=== PATIENT | female | born 1960 | race Caucasian/White ===

== ENCOUNTER 2018-01-21 06:40 | Day surgery (SDC) | payer BC ==
[~2018-01-21 06:40] MED LIST: Acetaminophen TAB* 325 MG PO PRN; Buffered Lidocaine 0.9% SYRIN* 5 ML/SYR SYRINGE INTRADERM ONE
[2018-01-21] MEDS ORDERED: Midazolam* 1 MG/ML 5 ML VIAL (5 MG) ONE (07:50)
[2018-01-21] MEDS ORDERED: Neomycin/Polymy/Dex OPTH.SUSP* MAXITROL 0.1% 5 ML ONE (08:06)
[2018-01-21] MEDS ORDERED: acetaZOLAMIDE TAB* 250 MG ONE (08:06)
[2018-01-21] MEDS ORDERED: Lidocaine 2% EPI 1:200000 MPF*10-20 ML VIAL ONE (08:06)
[2018-01-21] MEDS ORDERED: Cyclopentolate 1% OPTH.SOL* 2 ML BTL ONE (08:06)
[2018-01-21] MEDS ORDERED: Povidone Iodine 5% OPTH* 30 ML BTL ONE (08:06)
[2018-01-21] MEDS ORDERED: Ketorolac 0.5% OPHTH (NF) 0.5 % 5 ML BTL ONE (08:06)
[2018-01-21] MEDS ORDERED: Phenylephrine 2.5% OPTH.SOL* 2 ML BTL ONE (08:06)
[2018-01-21] MEDS ORDERED: Lidocaine 1%* 5 ML VIAL ONE (08:06)
[2018-01-21] MEDS ORDERED: Proparacaine 0.5% OPHTH.SOL* 15 ML BTL ONE (08:07)
[2018-01-21] MEDS ORDERED: fentaNYL* 50 MCG/ML 2 ML VIAL (100 MCG VIAL) ONE (08:50)
[2018-01-21 09:42] VITALS: BP 98/47
--- NOTE | 2018-01-22 06:29 | OP ---
DATE OF OPERATION: 01/21/18 - [facility] DATE OF : 56 SURGEON: Cirilo Carey M.D. PREOPERATIVE DIAGNOSIS: Cataract, left eye; primary open angle glaucoma, left. POSTOPERATIVE DIAGNOSIS: Cataract, left eye; primary open angle glaucoma, left. OPERATIVE PROCEDURE: Extracapsular cataract extraction with intraocular lens implant left eye and iStent. DESCRIPTION OF PROCEDURE: The patient was brought to the operating room after being given 1/2% Alcaine with epinephrine drops in the preoperative area. The eye was prepped and draped in the usual sterile fashion. Sterile drape and eyelid speculum were placed. Again, topical 1/2% Alcaine with epinephrine was given. A paracentesis incision was made at the 3 o'clock position with the No.75 blade. Clear cornea incision 2.2 x 2.2-mm was created at the 6 o'clock position starting at the anterior limbus using the 2.2-mm keratome. The anterior chamber was irrigated with 0.4 mL of 1% non-preservative intracameral lidocaine and filled with DisCoVisc. A capsulorrhexis was completed using the cystotome and the Utrata forceps. Hydrodissection was performed with balanced salt solution. The lens nucleus was removed with the Phacoemulsification handpiece without incident. Cortex was removed with the irrigation-aspiration handpiece. The capsular bag was re-inflated using DisCoVisc and an [id number] implant was inserted with the shooter followed by an iStent [id number] inserted with its shooter into the trabecular mesh work at 9 o'clock. The lens was then rotated to the 178 degree meridian. Horizontal reference green were made in the preoperative area with the patient in a seated position. The irrigation- aspiration handpiece was used to remove all residual DisCoVisc. The eye was refilled with balanced salt solution and the wound checked and found to be watertight. Topical Maxitrol drops were given. [id number]/[facility] #: [id number] MTDD
== END 2018-01-21 09:38 | disposition home or self-care (01) ==
LOC: OREAST 06:40
PROVIDERS: ATTEND Specialist
DX: H25.812 Combined forms of age-related cataract, left eye (principal); H40.1131 Primary open-angle glaucoma, bilateral, mild stage; E03.9 Hypothyroidism, unspecified; J45.909 Unspecified asthma, uncomplicated; Z85.820 Personal history of malignant melanoma of skin; E78.5 Hyperlipidemia, unspecified
CPT/HCPCS: A9270-GY; C1783; J2250; J3010; V2787

== ENCOUNTER 2018-01-28 10:46 | Day surgery (SDC) | payer BC ==
[~2018-01-28 10:46] MED LIST changes: +Midazolam* 1 MG/ML 2 ML VIAL (2 MG) ONE
[2018-01-28] MEDS ORDERED: Proparacaine 0.5% OPHTH.SOL* 15 ML BTL ONE (12:31)
[2018-01-28] MEDS ORDERED: Phenylephrine 2.5% OPTH.SOL* 2 ML BTL ONE (12:31)
[2018-01-28] MEDS ORDERED: Cyclopentolate 1% OPTH.SOL* 2 ML BTL ONE (12:31)
[2018-01-28] MEDS ORDERED: Povidone Iodine 5% OPTH* 30 ML BTL ONE (12:31)
[2018-01-28] MEDS ORDERED: Lidocaine 2% EPI 1:200000 MPF*10-20 ML VIAL ONE (12:31)
[2018-01-28] MEDS ORDERED: Neomycin/Polymy/Dex OPTH.SUSP* MAXITROL 0.1% 5 ML ONE (12:31)
[2018-01-28] MEDS ORDERED: acetaZOLAMIDE TAB* 250 MG ONE (12:31)
[2018-01-28] MEDS ORDERED: Lidocaine 1%* 5 ML VIAL ONE (12:31)
[2018-01-28] MEDS ORDERED: Ketorolac 0.5% OPHTH (NF) 0.5 % 5 ML BTL ONE (12:31)
[2018-01-28] MEDS ORDERED: Midazolam* 1 MG/ML 2 ML VIAL (2 MG) ONE (13:17)
[2018-01-28] MEDS ORDERED: fentaNYL* 50 MCG/ML 2 ML VIAL (100 MCG VIAL) ONE (13:18)
[2018-01-28 14:02] VITALS: BP 115/60
--- NOTE | 2018-01-29 09:25 | OP ---
DATE OF OPERATION: 01/28/18 - [facility] DATE OF : 56 SURGEON: Cirilo Carey M.D. PREOPERATIVE DIAGNOSIS: Cataract, right eye, and glaucoma, right eye. POSTOPERATIVE DIAGNOSIS: Cataract, right eye, and glaucoma, right eye. OPERATIVE PROCEDURE: Extracapsular cataract extraction with intraocular lens implant right eye and iStent. DESCRIPTION OF PROCEDURE: The patient was brought to the operating room after being given 1/2% Alcaine with epinephrine drops in the preoperative area. The eye was prepped and draped in the usual sterile fashion. Sterile drape and eyelid speculum were placed. Again, topical 1/2% Alcaine with epinephrine was given. A paracentesis incision was made at the 9 o'clock position with the No.75 blade. Clear cornea incision 2.2 x 2.2-mm was created at the 12 o'clock position starting at the anterior limbus using the 2.2-mm keratome. The anterior chamber was irrigated with 0.4 mL of 1% non-preservative intracameral lidocaine and filled with DisCoVisc. A capsulorrhexis was completed using the cystotome and the Utrata forceps. Hydrodissection was performed with balanced salt solution. The lens nucleus was removed with the Phacoemulsification handpiece without incident. Cortex was removed with the irrigation-aspiration handpiece. The capsular bag was re-inflated using DisCoVisc and an [id number] implant was inserted with the shooter and oriented to the 10-degree meridian followed by an iStent [id number] inserted into the trabecular meshwork with its shooter. The horizontal reference green were made with the patient in a seated position; again, the lens axis was 10 degrees. The irrigation-aspiration handpiece was used to remove all residual DisCoVisc. The eye was refilled with balanced salt solution and the wound checked and found to be watertight. Topical Maxitrol drops were given. [id number]/[facility] #: [id number] [facility]
== END 2018-01-28 13:59 | disposition home or self-care (01) ==
LOC: OREAST 10:46
PROVIDERS: ATTEND Specialist
DX: H25.811 Combined forms of age-related cataract, right eye (principal); H40.1131 Primary open-angle glaucoma, bilateral, mild stage; E03.9 Hypothyroidism, unspecified; J45.909 Unspecified asthma, uncomplicated; Z88.8 Allergy status to other drugs, medicaments and biological substances; Z87.891 Personal history of nicotine dependence; Z96.1 Presence of intraocular lens
CPT/HCPCS: A9270-GY; C1783; J2250; J3010; V2787

== ENCOUNTER 2019-01-06 15:39 | Emergency (ER) | payer BC ==
[2019-01-06 16:47] VITALS: BP 114/75
--- NOTE | 2019-01-06 17:02 | UC ---
Abdominal Pain Female HPI - HPI Summary HPI Summary: Patient presents to urgent care with her significant other. Patient states starting at 9:00 this morning she had urinary urgency and frequency. Patient also reports mild dysuria. No abdominal pain. No nausea vomiting. No fevers. Patient with mild left low back pain this afternoon. No analgesia taken. No vaginal discharge, itching, odor. No hematuria. Patient states her urine does have a slight odor. Patient without recent history of UTI. Patient medications reviewed this visit. - History of Current Complaint Chief Complaint: UCGU Stated Complaint: URINE ISSUES Time Seen by Provider: 01/06/19 16:54 Hx Obtained From: Patient ?: No Onset/Duration: Gradual Onset Severity Initially: Mild Severity Currently: Moderate Pain Intensity: 5 Pain Scale Used: 0-10 Numeric Allergies/Adverse Reactions: Allergies Allergy/AdvReac Type Severity Reaction Status Date / Time ibuprofen Allergy Severe Hives Verified 01/06/19 16:33 aspirin Allergy Intermediate Hives Verified 01/06/19 16:33 PMH/Surg Hx/FS Hx/Imm Hx Previously Healthy: Yes - Surgical History Surgical History: Yes Surgery Procedure, Year, and Place: ovary removal r/t benign tumor - Family History Known Family History: Positive: Non-Contributory - Social History Occupation: Employed Full-time - sports teacher Lives: With Family Alcohol Use: Occasionally Substance Use Type: None Smoking Status (MU): Never Smoked Tobacco - Immunization History Most Recent Tetanus Shot: UTD Review of Systems All Other Systems Reviewed And Are Negative: Yes Constitutional: Positive: Negative Skin: Positive: Negative Gastrointestinal: Negative: Abdominal Pain, Vomiting, Nausea Genitourinary: Positive: Dysuria, Hematuria, Urgency. Negative: Vaginal/Penile Burning, Vaginal/Penile Itching, Vaginal/Penile Discharge, Vaginal/Penile Tenderness Physical Exam - Summary Physical Exam Summary: Vital Signs Reviewed: Yes A+Ox3, no distress Eyes: Conjunctiva Clear, ALEENA. EOM intact and full ENT: Hearing grossly normal TM x 2 clear, mmoist, uvula midline, no exudate, no erythema Neck: Positive: Supple Respiratory: Positive: No respiratory distress, No accessory muscle use + CTA throughout no w/r Cardiovascular: RRR nl s1, s2 no m/r CBT <2 sec abd soft + BS very mild suprapubic discomfort, nd no guarding, no distension, no CVA Musculoskeletal Exam: JIM x 4 without difficulty Strength Intact, ROM Intact Neurological: Positive: Alert, + sensation throughout Psychological: Positive: Normal Response To Family Skin: Positive: no rash, no ecchymosis Triage Information Reviewed: Yes Vital Signs: Initial Vital Signs Temp 98.6 F 01/06/19 16:39 Pulse 63 01/06/19 16:39 Resp 17 01/06/19 16:39 BP 114/75 01/06/19 16:39 Pulse Ox 99 01/06/19 16:39 Abd Pain Female Course/Dx - Course Course Of Treatment: Patient presents to urgent care with urinary frequency, urgency, and dysuria since 9:00 this morning. Patient's been drinking fluids without improvement. No fevers or chills. Mild left low back pain. Patient states her urine has no odor. No hematuria. No history of UTI. On exam vital signs are stable. Patient with some mild suprapubic discomfort. No CVA. Patient urine exam consistent with UTI with leuks, blood, nitrites. We'll culture. Will place patient on Pyridium as well as Augmentin. Patient aware will be cultured. Strict return precautions. Patient states understanding agreement with plan. - Differential Dx/Diagnosis Provider Diagnosis: UTI (urinary tract infection) Discharge - Sign-Out/Discharge Documenting (check all that apply): Patient Departure All imaging exams completed and their final reports reviewed: No Studies - Discharge Plan Condition: Stable Disposition: HOME Prescriptions: Amoxicillin/Clavulanate TAB* [Augmentin TAB 875*] 875 mg PO BID #20 tab Phenazopyridine TAB* [Pyridium 100 mg TAB*] 100 mg PO TID PRN #9 tab PRN Reason: burning with urination Patient Education Materials: Urinary Tract Infection in Women (ED) Referrals: Jana Lopez MD [Primary Care Provider] - Additional Instructions: - stay well hydrated - drink plenty of non-alcoholic, non caffinated beverages - your urine will be further tested - if you require any changes to your treatment, we will contact you - this usually take 2 days - Contact your primary doctor to arrange a follow-up appointment next week. Contact your doctor or return with questions or concerns - Take your antibiotics exactly as prescribed until gone - Take pyridium as prescribed for discomfort. This will make your urine blaze orange - this is normal - Okay to take tylenol every 6 - 8 hours as needed for pain - Call your doctor or return with questions or concerns. If you develop fevers, chills, vomiting or increased back pain then it is recommended you go to the emergency department for further testing and evaluation - Billing Disposition and Condition Condition: STABLE Disposition: Home
== END 2019-01-06 17:55 | disposition home or self-care (01) ==
LOC: UCEAST 15:39
DX: N39.0 Urinary tract infection, site not specified (principal); R31.9 Hematuria, unspecified; M54.5 Low back pain; Z88.6 Allergy status to analgesic agent
CPT/HCPCS: 81003; 87077; 87086; 87186; 99212; G0463